=== PATIENT | male | born 1950 | race Caucasian/White ===

== ENCOUNTER 2018-01-08 12:52 | Emergency (ER) | payer MEDICARE, OTHER ==
[2018-01-08] MEDS ORDERED: PANTOPRAZOLE 40 MG VIAL IVP STA (14:27)
--- NOTE | 2018-01-08 14:33 | ED Physician Documentation ---
History of Present Illness - Stated complaint Stated Complaint: COUGHING UP BLOOD - Chief complaint Chief Complaint: General - History obtained from History obtained from: Patient - History of Present Illness Timing: Today (About 1230 he was eating tacos and felt like food got stuck behind the sternum. He took a swing of water and then vomited several times blood. He has not vomited For the last hour and a half and feels just sore now. He is not short of breath. He had a laparoscopic gastric bypass about 13 years ago.) Review of Systems Constitutional: reports: Reviewed and negative Cardiac: denies: Chest pain / pressure, Palpitations Respiratory: denies: Dyspnea, Cough PD PAST MEDICAL HISTORY - Past Medical History Past Medical History: No - Past Surgical History Past Surgical History: Yes General: Cholecystectomy, Appendectomy, Gastric surgery - Present Medications Home Medications: Ambulatory Orders Medication Instructions Recorded Confirmed Omeprazole 20 mg PO DAILY #7 capsule. 01/08/18 Sertraline [Zoloft] 0 mg PO DAILY 01/08/18 01/08/18 - Allergies Allergies/Adverse Reactions: Allergies Allergy/AdvReac Type Severity Reaction Status Date / Time codeine AdvReac Emesis Verified 01/08/18 13:07 - Social History Does the pt smoke?: No Smoking Status: Never smoker Does the pt have substance abuse?: No PD ED PE NORMAL - Vitals Vital signs reviewed: Yes - General General: Alert and oriented X 3, No acute distress - Cardiac Cardiac: RRR, No murmur - Respiratory Respiratory: No respiratory distress, Clear bilaterally - Abdomen Abdomen: Non tender - Neuro Neuro: Alert and oriented X 3, Normal speech Results - Vitals Vitals: Vital Signs - 24 hr 01/08/18 01/08/18 13:03 15:14 Temperature 35.7 C L Heart Rate 80 Respiratory 20 16 Rate Blood Pressure 140/80 H 127/75 O2 Saturation 99 Oxygen O2 Source Room air - Labs Labs: Laboratory Tests 01/08/18 01/08/18 14:39 14:39 WBC 9.8 RBC 5.15 Hgb 15.1 Hct 44.9 MCV 87.2 MCH 29.4 MCHC 33.7 RDW 14.7 Plt Count 236 MPV 7.7 Neut # (Auto) 8.7 H Lymph # (Auto) 0.9 L [place] # (Auto) 0.2 Eos # (Auto) 0.1 Baso # (Auto) 0.0 Absolute Nucleated RBC 0.00 Nucleated RBC % 0.0 Sodium 138 Potassium 4.0 Chloride 102 Carbon Dioxide 29 Anion Gap 7.0 BUN 22 H Creatinine 1.1 Estimated GFR (MDRD) 67 L Glucose 114 H Calcium 8.9 Total Bilirubin 1.2 H AST 20 ALT 18 Alkaline Phosphatase 64 Total Protein 7.3 Albumin 4.4 Globulin 2.9 Albumin/Globulin Ratio 1.5 Lipase 35 - Rads (name of study) 2v chest Radiology: EMP read contemporaneously (normal) PD MEDICAL DECISION MAKING - ED course ED course: He is no longer vomiting and is able to tolerate oral fluids at this point without issue. His chest x-ray is normal and he had no further vomiting or evidence of bleeding throughout his observation. Departure - Departure Disposition: 01 Home, Self Care Clinical Impression: Breanna-Juarez tear Condition: Good Record reviewed to determine appropriate education?: Yes Instructions: Breanna Juarez Tear Prescriptions: Omeprazole 20 mg PO DAILY #7 capsule. Comments: Liquid diet for a few days, return for recurrent episodes of bloody vomits or if you develop weakness or fainting or near fainting.
[2018-01-08 14:56] LABS: BASOPHILS % (AUTO) 0.3 %; EOSINOPHILS # (AUTO) 0.1 10^3/uL (0.0-0.7); HGB - HEMOGLOBIN 15.1 g/dL (14.0-18.0); LYMPHOCYTES # (AUTO) 0.9 10^3/uL (1.5-3.5); LYMPHOCYTES % (AUTO) 8.8 %; MEAN CORPUSCULAR HEMOGLOBIN 29.4 pg (27.0-31.0); MEAN CORPUSCULAR HGB CONC 33.7 g/dL (32.0-36.0); MEAN CORPUSCULAR VOLUME 87.2 fL (80.0-94.0); MEAN PLATELET VOLUME 7.7 fL (7.4-11.4); MONOCYTES # (AUTO) 0.2 10^3/uL (0.0-1.0); MONOCYTES % (AUTO) 1.8 %; NEUTROPHILS # (AUTO) 8.7 10^3/uL (1.5-6.6); NEUTROPHILS % (AUTO) 88.1 %; PLT - PLATELET COUNT 236 10^3/uL (130-450); RED BLOOD COUNT 5.15 10^6/uL (4.70-6.10); RED CELL DISTRIBUTION WIDTH 14.7 % (12.0-15.0); WHITE BLOOD COUNT 9.8 x10^3/uL (4.8-10.8)
[2018-01-08 15:01] LABS: ALBUMIN 4.4 g/dL (3.2-5.5); ALBUMIN/GLOBULIN RATIO 1.5 (1.0-2.2); BILIRUBIN,TOTAL 1.2 mg/dL (0.2-1.0); CALCIUM 8.9 mg/dL (8.5-10.3); CREATININE 1.1 mg/dL (0.6-1.2); TOTAL PROTEIN 7.3 g/dL (6.7-8.2)
[2018-01-08 15:15] VITALS: BP 127/75
--- NOTE | 2018-01-08 15:24 | XRAY Report ---
Reason: esophageal trauma Procedure Date: 01/08/2018 Accession Number: [id number] / [id number] Procedure: XR - Chest 2 View X-Ray CPT Code: 47291 FULL RESULT: EXAM: CHEST RADIOGRAPHY EXAM DATE: 01/08/2018 03:09 PM. CLINICAL HISTORY: Esophageal trauma. Patient coughed up a lot of blood when food stuck in throat became dislodged. COMPARISON: None. TECHNIQUE: 2 views. FINDINGS: Lungs/Pleura: No focal opacities evident. No pleural effusion. No pneumothorax. Normal volumes. Mediastinum: Heart and mediastinal contours are unremarkable. Other: No bony abnormality noted. Cholecystectomy clips identified. IMPRESSION: Normal 2-view chest radiography. [facility]
== END 2018-01-08 15:40 | disposition home or self-care (01) ==
LOC: ED 12:52
DX: K22.6 Gastro-esophageal laceration-hemorrhage syndrome (principal); Z98.84 Bariatric surgery status
CPT/HCPCS: 36415; 71046; 80053; 83690; 85025; 96374; 99283